=== PATIENT | male | born 1955 | race Caucasian/White ===

== ENCOUNTER 2018-07-03 08:40 | Outpatient (CLI) | payer OTHER ==
[2018-07-03 11:53] VITALS: BP 98/74
--- NOTE | 2018-07-03 16:27 | CARDIAC PROCEDURE NOTE ---
DATE OF SERVICE: 07/03/2018 Physician: ELLEN Peralta PRIMARY CARE PROVIDER: Melany Mike PA-C INSURANCE BILLING SPECIALIST: Griffin Ortega M.D. PROCEDURE: Cardiac treadmill stress test. REASON FOR PROCEDURE: High coronary calcium score and hyperlipidemia. CARDIAC RISK FACTORS: Age, hyperlipidemia. PREVIOUS CARDIAC PROCEDURES: None. CLINICAL HISTORY: A 62-year-old male without known coronary artery disease. INITIAL RESTING VITAL SIGNS: BP 98/74, heart rate 72, height 72 inches, weight 173 pounds, BMI 23.46 . PROCEDURE AND FINDINGS: Patient's identity and date verified. Consent signed. The patient performed treadmill exercise using a [employer] protocol, completing 11 minutes 48 seconds and completing an estimated workload of 13.48 metabolic equivalents. Maximal blood pressure was 156/72 with a heart rate of 140 beats per minute or 89% of maximum predicted heart rate for age. The blood pressure response to exercise was within normal limits. The patient stopped because he was tired. T he resting ECG demonstrated normal sinus rhythm with no abnormality. Maximum ST segment depression w as less than 0.5 mm and upsloping. There was rare ectopy of PAC and PVC. The 1 minute heart rate re covery was within normal limits. FINAL IMPRESSION 1. Good quality test. 2. Negative stress electrocardiogram for ischemia by electrocardiographic criteria. 3. Negative stress test clinically for angina. 4. Rare premature atrial contraction and premature ventricular contraction. 5. Exceeded predicted exercise time of 8 minutes 15 seconds. TD: 07/03/2018 10:42
== END 2018-07-03 08:41 | disposition home or self-care (01) ==
LOC: DI 08:40
PROVIDERS: ATTEND Internal Medicine Cardiovascular Disease
DX: R93.8 Abnormal findings on diagnostic imaging of other specified body structures (principal); E78.5 Hyperlipidemia, unspecified
CPT/HCPCS: 93017

== ENCOUNTER 2018-07-08 07:28 | Emergency (ER) | payer OTHER ==
[2018-07-08] MEDS ORDERED: LIDOCAINE 2% URO-JET 5 ML SYRINGE UR STA (07:44)
--- NOTE | 2018-07-08 07:47 | ED Physician Documentation ---
PD HPI MALE - Stated complaint Stated Complaint: UNABLE TO URINATE/WEAKNESS - History obtained from History obtained from: Patient - History of Present Illness Timing - onset: How many days ago (has had weak urine stream for a month or so. Poor stream and feeling of full bladder the past 5-6 days, and unable to sleep due to pain. Only urinates small dribble at a time.) Associated symptoms: Urinary frequency, Unable to urinate (only small amounts out. Has had discomfort for past 4 days particularly and unable to sleep trying to get some urine out.) PD HPI MALE CONTRIB FACTORS: No: Exposed to STD Similar symptoms before: Has not had sx before Recently seen: Clinic (2 days ago and given Rx for Flomax and Cipro. Having still feeling of dribbling and bladder fullness.) Review of Systems Constitutional: denies: Fever, Chills, Myalgias Nose: denies: Rhinorrhea / runny nose, Congestion GI: reports: Nausea. denies: Abdominal Swelling, Vomiting, Diarrhea : reports: Dysuria, Frequency, Unable to Void Skin: denies: Rash PD PAST MEDICAL HISTORY - Past Medical History Cardiovascular: High cholesterol Respiratory: None Neuro: None - Past Surgical History General: Appendectomy Ortho: Rotator cuff repair, Spine surgery - Present Medications Home Medications: Ambulatory Orders Medication Instructions Recorded Confirmed Ciprofloxacin HCl [Cipro] 500 mg PO DAILY 07/08/18 07/08/18 Tamsulosin [Flomax] 0 mg 07/08/18 - Allergies Allergies/Adverse Reactions: Allergies Allergy/AdvReac Type Severity Reaction Status Date / Time No Known Drug Allergies Allergy Verified 07/08/18 07:57 PD ED PE NORMAL - Vitals Vital signs reviewed: Yes - General General: Alert and oriented X 3, Well developed/nourished, Other (seems uncomfortable due to full bladder. ) - Neck Neck: Supple, no meningeal sign, No adenopathy - Cardiac Cardiac: RRR, No murmur - Respiratory Respiratory: Clear bilaterally - Abdomen Abdomen: Normal bowel sounds, Soft, No organomegaly, Other (fullness suprapubic area c/w full bladder. ) - Back Back: No CVA TTP - Derm Derm: Normal color, Warm and dry - Extremities Extremities: No edema, No calf tenderness / cord Results - Vitals Vitals: Vital Signs - 24 hr 07/08/18 07/08/18 07:32 09:24 Temperature 36.5 C Heart Rate 90 82 Respiratory 16 16 Rate Blood Pressure 140/84 H 122/81 H O2 Saturation 94 Oxygen O2 Source Room air - Labs Labs: Laboratory Tests 07/08/18 07:50 Urine Color YELLOW Urine Clarity HAZY Urine pH 6.[address] [place] 1.025 Urine Protein >=300 Urine Glucose (UA) NEGATIVE Urine Ketones NEGATIVE Urine Occult Blood MODERATE H Urine Nitrite NEGATIVE Urine Bilirubin NEGATIVE Urine Urobilinogen 0.2 (NORMAL) Ur Leukocyte Esterase NEGATIVE Urine RBC 11-25 H Urine WBC >25 H Ur Squamous Epith Cells NONE SEEN Urine Bacteria Many H Ur Microscopic Review INDICATED Urine Culture Comments INDICATED PD MEDICAL DECISION MAKING - ED course Complexity details: considered differential (bladder scanner showing large amount. Maldonado by nursing with feeling much better. His PCP was wanting him to get KUB CT, so got that while here. ), d/w patient - Sepsis Event Vital Signs: Vital Signs - 24 hr 07/08/18 07/08/18 07:32 09:24 Temperature 36.5 C Heart Rate 90 82 Respiratory 16 16 Rate Blood Pressure 140/84 H 122/81 H O2 Saturation 94 Oxygen O2 Source Room air Departure - Departure Disposition: 01 Home, Self Care Clinical Impression: Acute urinary retention, Enlarged prostate UTI (urinary tract infection) Qualifiers: Urinary tract infection type: acute cystitis Hematuria presence: without hematuria Qualified Code(s): N30.00 - Acute cystitis without hematuria Condition: Stable Record reviewed to determine appropriate education?: Yes Instructions: ED Retention Urinary Male, ED UTI Cystitis Male Follow-Up: Melany Mike PA [Primary Care Provider] - Comments: Leave the Maldonado in place until follow-up. Your CT scan did show enlargement of the prostate without any other obvious acute problem. There is an incidental large cyst on the left kidney which is a common finding. Your urine test suggests an infection with some white cells and bacteria. The current prescriptions of the antibiotic and the TMs loosen to reduce the prostate size or seeming appropriate. Typically would have you on those medicines long enough for the infection to clear and the prostate to shrink a little before removing the catheter to give a better chance of good urine outflow upon removal. Follow-up with your primary care and she may refer you to a urologist (often needs to originate through your PCP). Discharge Date/Time: 07/08/18 09:25
[2018-07-08 08:06] LABS: BILIRUBIN,URINE NEGATIVE (NEGATIVE); GLUCOSE, URINE (UA) NEGATIVE (NEGATIVE); KETONES,URINE (UA) NEGATIVE (NEGATIVE); LEUKOCYTE ESTERASE, URINE NEGATIVE (NEGATIVE); NITRITE,URINE NEGATIVE (NEGATIVE); OCCULT BLOOD,URINE MODERATE (NEGATIVE); PROTEIN,URINE >=300 mg/dL (NEGATIVE); UROBILINOGEN,URINE 0.2 (NORMAL) E.U./dL (NORMAL)
[2018-07-08 08:08] LABS: CLARITY,URINE HAZY (CLEAR)
[2018-07-08 08:20] LABS: BACTERIA,URINE Many /HPF (None Seen); SQUAMOUS EPITHELIAL CELL,UR NONE SEEN (<= Few)
--- NOTE | 2018-07-08 08:42 | CT Report ---
Procedure Date: 07/08/2018 Accession Number: [id number] / [id number] Procedure: CT - KUB CPT Code: FULL RESULT: EXAM: CT ABDOMEN AND PELVIS (CT KUB) EXAM DATE: 07/08/2018 08:19 AM. CLINICAL HISTORY: Unable to urinate; poor output. COMPARISONS: None. TECHNIQUE: Routine axial helical CT imaging was performed through the abdomen and pelvis without IV contrast. Reconstructions: Coronal and sagittal. In accordance with CT protocol optimization, one or more of the following dose reduction techniques were utilized for this exam: automated exposure control, adjustment of mA and/or KV based on patient size, or use of iterative reconstructive technique. FINDINGS: Lung Bases: Unremarkable. Right Kidney/Ureter: No stones, hydronephrosis, or hydroureter. Mild perinephric stranding, which may be chronic. Left Kidney/Ureter: No stones, hydronephrosis, or hydroureter. 9 cm diameter exophytic simple cyst off the inferior pole. other Solid Organs: Noncontrast images of the solid organs are grossly unremarkable. Gallbladder/Bile Ducts: Layering density likely represents sludge or small gallstones. Peritoneal Cavity: No ascites or pneumoperitoneum. No bowel obstruction. [id number] stool burden. Colorectal anastomosis without evidence of adjacent inflammatory stranding. Pelvic Organs: The prostate gland is enlarged. The urinary bladder is decompressed by a Maldonado catheter. Vasculature: Mild to moderate atherosclerosis without aneurysm. Other: None. IMPRESSION: The urinary bladder is decompressed by a Maldonado catheter. Prostatomegaly may be the underlying cause of bladder outlet obstruction. No hydronephrosis. RADIA
[2018-07-08 09:25] VITALS: BP 122/81
== END 2018-07-08 09:25 | disposition home or self-care (01) ==
LOC: ED 07:28
DX: N30.00 Acute cystitis without hematuria (principal); N40.1 Benign prostatic hyperplasia with lower urinary tract symptoms
CPT/HCPCS: 51702; 74176; 81001; 81003; 87077; 87086; 87181; 99283

== ENCOUNTER 2021-04-08 09:08 | Outpatient (CLI) | payer MEDICARE ==
[2021-04-08 15:34] LABS: ALBUMIN 2.6 g/dL (3.2-5.5); ALBUMIN/GLOBULIN RATIO 0.9 (1.0-2.2); ALKALINE PHOSPHATASE 49 IU/L (42-121); ALT ALANINE AMINOTRANSFERASE 19 IU/L (10-60); AST ASPARTATE AMINOTRANSFERASE 22 IU/L (10-42); BUN - BLOOD UREA NITROGEN 25 mg/dL (6-20); CALCIUM 8.9 mg/dL (8.5-10.3); CARBON DIOXIDE - CO2 26 mmol/L (21-32); CHLORIDE 105 mmol/L (101-111); CHOL/HDL RATIO 7.3 (<5.0); CHOLESTEROL 411 mg/dL; CK- CREATINE KINASE 97 IU/L (22-269); CREATININE 0.8 mg/dL (0.6-1.2); GFR - MDRD 96 (>89); GLUCOSE 98 mg/dL (70-100); HDL CHOLESTEROL 56 mg/dL; LDL CHOLESTEROL,CALCULATED 313 mg/dL; LDL/HDL RATIO 5.6 (<3.6); POTASSIUM 3.8 mmol/L (3.5-5.0); SODIUM 140 mmol/L (135-145); TOTAL PROTEIN 5.5 g/dL (6.7-8.2); TRIGLYCERIDES 208 mg/dL; VLDL CHOLESTEROL 42 mg/dL
[2021-04-08 16:05] LABS: CREATININE,URINE 99.9 mg/dL; MICROALBUM/CREATININE RATIO,UR 3185.2 ug/mg (<30.0); MICROALBUMIN,URINE 318.2 mg/dL (0-300.0)
[2021-04-08 18:47] LABS: ESTIMATED AVERAGE GLUCOSE 97 mg/dL (70-100)
== END 2021-04-08 09:09 | disposition home or self-care (01) ==
LOC: LAB.S 09:08
PROVIDERS: ATTEND Internal Medicine Endocrinology, Diabetes & Metabolism
DX: E78.5 Hyperlipidemia, unspecified (principal)
CPT/HCPCS: 36415; 80053; 80061; 81599; 82043; 82172; 82550; 82570; 83036; 83695; 83721; 84443

== ENCOUNTER 2021-05-30 12:41 | Outpatient (CLI) | payer MEDICARE ==
--- NOTE | 2021-05-30 17:02 | XRAY Report ---
PROCEDURE: Knee 3 View BILAT INDICATIONS: BILATERAL KNEE PAIN TECHNIQUE: 3 views of each knee are obtained. COMPARISON: None. FINDINGS: Bones: No fractures or dislocations. No suspicious bony lesions. Intramedullary jamaal within the left tibia. Moderate tricomponent mild periarticular osteophyte formation bilaterally. Soft tissues: No joint effusion. Chondrocalcinosis within the medial lateral compartments of the ashley ateral knees IMPRESSION: 1. Bilateral osteoarthritis. 2. Postsurgical sequelae. 3. Chondrocalcinosis. 4. No acute fracture. No osseous lesion. If symptoms and/or clinical suspicion for pathology continue , further assessment with repeat plain films, or advanced imaging (e.g., CT, MRI, or bone scan) is re commended for further assessment. Reviewed by: Coral Jacobson MD on 05/30/2021 5:00 PM PDT Approved by: Coral Jacobson MD on 05/30/2021 5:00 PM PDT Station ID: [id number]
== END 2021-05-30 12:42 | disposition home or self-care (01) ==
LOC: DI.S 12:41
PROVIDERS: ATTEND Nurse Practitioner Family
DX: M25.561 Pain in right knee (principal); M25.562 Pain in left knee; M17.0 Bilateral primary osteoarthritis of knee; M11.262 Other chondrocalcinosis, left knee; M11.261 Other chondrocalcinosis, right knee

== ENCOUNTER 2022-02-27 10:05 | Outpatient (CLI) | payer MEDICARE ==
[2022-02-27 15:08] LABS: ALBUMIN 2.7 g/dL (3.2-5.5); ALKALINE PHOSPHATASE 50 IU/L (42-121); ALT ALANINE AMINOTRANSFERASE 19 IU/L (10-60); AST ASPARTATE AMINOTRANSFERASE 25 IU/L (10-42); BILIRUBIN,TOTAL 0.7 mg/dL (0.2-1.0); BUN - BLOOD UREA NITROGEN 28 mg/dL (6-20); CARBON DIOXIDE - CO2 27 mmol/L (21-32); CHLORIDE 106 mmol/L (101-111); CHOL/HDL RATIO 3.3 (<5.0); CHOLESTEROL 251 mg/dL; CREATININE 0.9 mg/dL (0.6-1.2); GFR - MDRD 84 (>89); GLUCOSE 91 mg/dL (70-100); HDL CHOLESTEROL 76 mg/dL; LDL CHOLESTEROL,CALCULATED 153 mg/dL; POTASSIUM 4.6 mmol/L (3.5-5.0); SODIUM 140 mmol/L (135-145); TOTAL PROTEIN 5.5 g/dL (6.7-8.2); TRIGLYCERIDES 110 mg/dL; VLDL CHOLESTEROL 22 mg/dL
[2022-02-27 20:05] LABS: ESTIMATED AVERAGE GLUCOSE 111 mg/dL (70-100); HEMOGLOBIN A1c% 5.5 % (4.27-6.07)
== END 2022-02-27 10:06 | disposition home or self-care (01) ==
LOC: LAB.S 10:05
PROVIDERS: ATTEND Internal Medicine Endocrinology, Diabetes & Metabolism
DX: E78.01 Familial hypercholesterolemia (principal)
CPT/HCPCS: 36415; 80053; 80061; 83036; 83721

== ENCOUNTER 2022-08-22 07:55 | Outpatient (CLI) | payer MEDICARE ==
[2022-08-22 15:22] LABS: ALBUMIN 2.7 g/dL (3.2-5.5); ALBUMIN/GLOBULIN RATIO 0.9 (1.0-2.2); ALKALINE PHOSPHATASE 45 IU/L (42-121); ALT ALANINE AMINOTRANSFERASE 17 IU/L (10-60); AST ASPARTATE AMINOTRANSFERASE 24 IU/L (10-42); BILIRUBIN,TOTAL 0.7 mg/dL (0.2-1.0); BUN - BLOOD UREA NITROGEN 26 mg/dL (6-20); CALCIUM 8.8 mg/dL (8.5-10.3); CARBON DIOXIDE - CO2 28 mmol/L (21-32); CHLORIDE 104 mmol/L (101-111); CHOL/HDL RATIO 4.7 (<5.0); CHOLESTEROL 326 mg/dL; CREATININE 1.1 mg/dL (0.6-1.2); GFR - MDRD 67 (>89); GLUCOSE 89 mg/dL (70-100); HDL CHOLESTEROL 69 mg/dL; LDL CHOLESTEROL,CALCULATED 221 mg/dL; LDL/HDL RATIO 3.2 (<3.6); POTASSIUM 4.3 mmol/L (3.5-5.0); SODIUM 136 mmol/L (135-145); TOTAL PROTEIN 5.6 g/dL (6.7-8.2); TRIGLYCERIDES 179 mg/dL; VLDL CHOLESTEROL 36 mg/dL
[2022-08-22 20:13] LABS: ESTIMATED AVERAGE GLUCOSE 105 mg/dL (70-100); HEMOGLOBIN A1c% 5.3 % (4.27-6.07)
== END 2022-08-22 07:56 | disposition home or self-care (01) ==
LOC: LAB.S 07:55
PROVIDERS: ATTEND Internal Medicine Endocrinology, Diabetes & Metabolism
DX: E78.01 Familial hypercholesterolemia (principal)
CPT/HCPCS: 36415; 80053; 80061; 83036; 83721

== ENCOUNTER 2023-01-01 16:03 | Outpatient (CLI) | payer MEDICARE ==
--- NOTE | 2023-01-02 09:31 | XRAY Report ---
PROCEDURE: Chest 2 View X-Ray INDICATIONS: UNINTETIONAL WEIGHT LOSS TECHNIQUE: 2 views of the chest were acquired. COMPARISON: None. FINDINGS: Surgical changes and devices: None. Lungs and pleura: No pleural effusions or pneumothorax. Lungs are clear. Mediastinum: Mediastinal contours are normal. Heart size is normal. Bones and chest wall: No suspicious bony abnormalities. Soft tissues appear unremarkable. IMPRESSION: No acute cardiopulmonary disease. Reviewed by: Trey Lawson MD on 01/02/2023 9:30 AM [facility] Approved by: Trey Lawson MD on 01/02/2023 9:30 AM [facility] Station ID: [id number]
== END 2023-01-01 16:04 | disposition home or self-care (01) ==
LOC: DI.S 16:03
PROVIDERS: ATTEND Nurse Practitioner Family
DX: R63.4 Abnormal weight loss (principal)

== ENCOUNTER 2023-02-04 14:18 | Outpatient (CLI) | payer MEDICARE ==
[2023-02-04 20:00] LABS: CREATININE 1.3 mg/dL (0.6-1.2)
[2023-02-04 20:15] LABS: PSA FREE 2.895 ng/mL (0.16-2.81)
[2023-02-04 20:16] LABS: PSA TOTAL 8.092 ng/mL (0.000-2.000)
== END 2023-02-04 14:19 | disposition home or self-care (01) ==
LOC: LAB.S 14:18
PROVIDERS: ATTEND Physician Assistant
DX: R31.0 Gross hematuria (principal); R97.20 Elevated prostate specific antigen [PSA]
CPT/HCPCS: 36415; 82565; 84153; 84154; 84520

== ENCOUNTER 2023-02-14 12:25 | Outpatient (CLI) | payer MEDICARE ==
[2023-02-14] MEDS ORDERED: iohexoL-300 100 ML VIAL ONE ×2 (12:31)
[2023-02-14] MEDS ORDERED: iohexoL-300 100 ML VIAL IVP ONE (12:48)
--- NOTE | 2023-02-14 22:07 | CT Report ---
PROCEDURE: CT IVP INDICATIONS: GROSS HEMATURIA CONTRAST: 140ml Omnipaque 300 TECHNIQUE: Noncontrast images of the abdomen and pelvis obtained. After the administration of intravenous contra st, 5 mm thick sections acquired from the diaphragms to the symphysis using a split bolus technique. 5 mm thick coronal and sagittal reformats were acquired. For radiation dose reduction, the followin g was used: automated exposure control, adjustment of mA and/or kV according to patient size. COMPARISON: CT KUB 07/08/2018 FINDINGS: Visualized lung bases: No pleural effusion. Liver and biliary tree: A few scattered subcentimeter hypodensities are present, too small to charact erize. No biliary ductal dilation demonstrated. Gallbladder: No radiopaque cholelithiasis. Spleen: Unremarkable. Pancreas: Unremarkable. Adrenal glands: Unremarkable. Kidneys and ureters: No urinary stone or hydroureteronephrosis. Redemonstrated simple appearing corti marixa cyst left inferior kidney, 10.8 cm. No definite evidence of a solid renal mass identified. The op acified portions of the renal collecting systems and ureters are unremarkable without a definite fill ing defect demonstrated. Gastrointestinal tract: No bowel obstruction. Prior low anterior resection. Peritoneal cavity: No free air or free fluid. Bladder: No stones visualized. Possible diffuse wall thickening. Pelvic organs: Prostatomegaly. Vasculature: No abdominal aortic aneurysm. Musculoskeletal: Degenerative change of the spine. Bilateral L5-S1 pars defects. IMPRESSION: 1. No urinary stone visualized. No definite evidence of a solid renal mass or upper tract urothelial neoplasm identified. 2. Prostatomegaly. 3. Possible wall thickening of the urinary bladder versus artifact from underdistention. Correlation for a cystitis may be helpful. Reviewed by: Ovidio Mathews MD on 02/14/2023 10:05 PM PDT Approved by: Ovidio Mathews MD on 02/14/2023 10:05 PM PDT Station ID: [id number]
== END 2023-02-14 12:26 | disposition home or self-care (01) ==
LOC: DI 12:25
PROVIDERS: ATTEND Physician Assistant
DX: R31.0 Gross hematuria (principal); N39.0 Urinary tract infection, site not specified; N40.1 Benign prostatic hyperplasia with lower urinary tract symptoms
CPT/HCPCS: 74178; Q9967

== ENCOUNTER 2023-02-16 12:45 | Outpatient (CLI) | payer MEDICARE ==
[~2023-02-16 12:45] MED LIST: GADOBUTROL 7.5 MMOL/7.5 ML VIAL ONE
[2023-02-16] MEDS ORDERED: GADOBUTROL 7.5 MMOL/7.5 ML VIAL IVP ONE (13:40)
--- NOTE | 2023-02-18 08:09 | MRI Report ---
PROCEDURE: PELVIS W/WO INDICATIONS: ELEVATED PSA CONTRAST: GADAVIST 6.8ML TECHNIQUE: Coronal ultra fast SE, axial T1 FSE with fat saturation, 3-plane nonbreath-hold T2 FSE. After the ad ministration of contrast, dynamic axial, delayed axial and coronal ultra fast GE or 2-D spoiled GE wi th fat saturation through the pelvis. Optional diffusion weighted imaging and ADC may be performed. COMPARISON: None. FINDINGS: Image quality: Diffusion weighted and dynamic contrast enhanced images are diagnostic. Prostate: Gland size is 6.1 x 7.6 x 5.1 cm cm; ellipsoid gland volume is 122 mL. No PI-RAD 3-5 lesions. A few foci of hemorrhage. Genitourinary system: Mildly spiculated bladder wall, suggestive of chronic outlet obstruction. Bowel and peritoneum: 1.7 cm segment of semiannular wall thickening of the high rectum (series 7/ image). Restricted diffusion is present. No mesorectal adenopathy. Nodes and vessels: No pelvic or inguinal adenopathy by size criteria. Iliac vessels are normal in c aliber. Soft tissues: Small right inguinal hernia containing fat. Bones: Bone marrow demonstrates normal overall signal. No suspicious bony lesions. IMPRESSION: Prostatomegaly. No PI-RAD 3-5 lesions. Short segment of semiannular wall thickening of the high rectum, which could indicate malignancy vers us artifact from fecal debris. Recommend direct visualization with colonoscopy, if not performed rece ntly. Reviewed by: Adelso Anderson on 02/18/2023 8:08 AM PDT Approved by: Adelso Anderson on 02/18/2023 8:08 AM PDT Station ID: [id number]
== END 2023-02-16 12:46 | disposition home or self-care (01) ==
LOC: DI 12:45
PROVIDERS: ATTEND Physician Assistant
DX: R97.20 Elevated prostate specific antigen [PSA] (principal); N40.0 Benign prostatic hyperplasia without lower urinary tract symptoms
CPT/HCPCS: 72197; A9585

== ENCOUNTER 2023-02-28 12:39 | Outpatient (CLI) | payer MEDICARE | END 2023-02-28 12:40 | disposition home or self-care (01) | LOC: NS 12:39 | PROVIDERS: ATTEND Internal Medicine | DX: Z71.3 Dietary counseling and surveillance (principal); R63.4 Abnormal weight loss; Z68.20 Body mass index [BMI] 20.0-20.9, adult | CPT/HCPCS: 97802 ==

== ENCOUNTER 2023-09-11 07:22 | Day surgery (SDC) | payer MEDICARE ==
[2023-09-11] MEDS ORDERED: PROPOFOL 500 MG/50 ML 500 MG/50 ML VIAL ONE (07:23)
[2023-09-11] MEDS ORDERED: LACTATED RINGERS 1,000 ML IV ONE ×2 (07:45→09:23)
--- NOTE | 2023-09-11 08:23 | ANESTHESIA ---
Pre-Anesthesia VS, & Labs - Diagnosis screening - Procedure colonoscopy Vital Signs: Temp Pulse Resp BP Pulse Ox O2 Flow Rate 36.8 C 79 20 135/86 H 96 09/11/23 07:40 09/11/23 07:40 09/11/23 07:40 09/11/23 07:40 09/11/23 07:40 Height: 6 ft 1 in Weight (kg): 64.5 kg Body Mass Index: 18.7 BMI Classification: Normal - NPO Other (prep as directed) Home Medications and Allergies Home Medications: Ambulatory Orders Escitalopram [Lexapro] 20 mg PO DAILY 09/10/23 Ezetimibe [Zetia] 10 mg PO QD 09/10/23 Finasteride [Proscar] 5 mg PO DAILY 09/10/23 Tamsulosin [Flomax] 2 tab PO DAILY 07/08/18 Escitalopram [Lexapro] 20 mg PO DAILY 09/10/23 Ezetimibe [Zetia] 10 mg PO QD 09/10/23 Finasteride [Proscar] 5 mg PO DAILY 09/10/23 Allergies/Adverse Reactions: Allergies Allergy/AdvReac Type Severity Reaction Status Date / Time No Known Drug Allergies Allergy Verified 07/08/18 07:57 Anes History & Medical History - Anesthetic History Anesthesia Complications: reports: Other-see comment (some arrythmia per patient, states had negative stress test, cardiac workup afterwards. not other cardiac history.) - Medical History Cardiovascular: reports: High cholesterol Pulmonary: reports: None Gastrointestinal: reports: None, Diverticulitis Urinary: reports: Benign prostate hypertrophy, Other Neuro: reports: None Musculoskeletal: reports: Rheumatoid arthritis Endocrine/Autoimmune: reports: None Skin: reports: Other Smoking Status: Never smoker History of Cancer?: Yes - Surgical History General: reports: Appendectomy, Other Eyes Ears Nose Throat (EENT): reports: Cataracts Urologic: reports: Bladder surgery Orthopedic: reports: Rotator cuff repair, Spine surgery Dermatologic: reports: Skin cancer surgery Exam General: Alert, Oriented x3 Dental: WNL Mouth Opening: Greater than 4 Fingerbreadths Neck Mobility: Normal Mallampati classification: II Thyromental Distance: greater than 6 cm Respiratory: Lungs clear Cardiovascular: Regular rate, Normal S1, Normal S2 Plan Anesthesia Type: Total IV Consent for Procedure(s) Verified and Reviewed: Yes Code Status: Attempt Resuscitation ASA classification: 2-Mild systemic disease Is this case an emergency?: No
[2023-09-11] MEDS ORDERED: MIDAZOLAM 2 MG/2 ML VIAL ONE (08:38)
[2023-09-11] MEDS ORDERED: DEXTROSE 5% 1,000 ML IV ONE (09:23)
[2023-09-11 09:57] VITALS: BP 131/85; O2SAT 98
--- NOTE | 2023-09-11 10:57 | ANESTHESIA POST OP EVALUATION ---
Anesthesia Post Eval - Post Anesthesia Eval Vitals: Last Vital Signs Temp 37.2 C 09/11/23 09:46 Pulse 78 09/11/23 09:46 Resp 18 09/11/23 09:46 BP 131/85 H 09/11/23 09:46 Pulse Ox 98 09/11/23 09:46 O2 Flow Rate CV Function Including HR & BP: Stable Pain Control: Satisfactory Nausea & Vomiting: Negative Mental Status: Baseline Respiratory Status: Airway Patent Hydration Status: Satisfactory Anesthesia Complications: None
== END 2023-09-11 07:23 | disposition home or self-care (01) ==
LOC: SDS 07:22
PROVIDERS: ATTEND Surgery
PROC: 0DBN8ZZ Excision of Sigmoid Colon, Via Natural or Artificial Opening Endoscopic (ICD-10-PCS; principal; 2023-09-11 08:30)
DX: Z12.11 Encounter for screening for malignant neoplasm of colon (principal); D12.5 Benign neoplasm of sigmoid colon; K57.30 Diverticulosis of large intestine without perforation or abscess without bleeding; Z90.49 Acquired absence of other specified parts of digestive tract; Z87.19 Personal history of other diseases of the digestive system
CPT/HCPCS: 45380; J7120

== ENCOUNTER 2023-09-13 15:16 | Outpatient (CLI) | payer MEDICARE ==
--- NOTE | 2023-09-13 15:49 | Sleep Patient Instructions ---
Sleep Center Visit Summary - Patient Visit Information Reason for Visit: Initial consult for evaluation of sleep disordered breathing and other sleep issues. - Patient Instructions Instructions Attached: Sleep Study, Sleep Clinic Visit Additional Instructions: You will be completing a sleep study, either an in-lab polysomnography (PSG) or home sleep study (HST). You will follow-up in the sleep care office after the sleep study is completed to hear the results and talk about therapy, if needed. You will be called by our office staff to schedule this appointment, but you may contact us with any questions. - Clinic Information Contact: [facility] [address] [place] [address] [email or web address] T: [phone]
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
[2023-09-13 16:05] VITALS: BP 134/84; O2SAT 95
== END 2023-09-13 15:17 | disposition home or self-care (01) ==
LOC: SC 15:16
PROVIDERS: ATTEND Nurse Practitioner Family
DX: G47.10 Hypersomnia, unspecified (principal); R53.83 Other fatigue; G47.8 Other sleep disorders; R06.81 Apnea, not elsewhere classified; R06.83 Snoring; R41.89 Other symptoms and signs involving cognitive functions and awareness; Z86.16 Personal history of COVID-19
CPT/HCPCS: 99203; G0463; 99212

== ENCOUNTER 2023-09-24 13:09 | Outpatient (CLI) | payer MEDICARE | END 2023-09-24 13:10 | disposition home or self-care (01) | LOC: LAB.S 13:09 | PROVIDERS: ATTEND Physician Assistant | DX: R97.20 Elevated prostate specific antigen [PSA] (principal) | CPT/HCPCS: 36415; 84153; 84154 ==

== ENCOUNTER 2023-10-11 19:23 | Outpatient (CLI) | payer MEDICARE | END 2023-10-11 19:24 | disposition home or self-care (01) | LOC: SC 19:23 | PROVIDERS: ATTEND Nurse Practitioner Family | DX: G47.33 Obstructive sleep apnea (adult) (pediatric) (principal); G47.61 Periodic limb movement disorder | CPT/HCPCS: 95810 ==

== ENCOUNTER 2023-10-23 09:02 | Outpatient (CLI) | payer MEDICARE ==
--- NOTE | 2023-10-23 09:40 | Sleep Patient Instructions ---
Sleep Center Visit Summary - Patient Visit Information Reason for Visit: Sleep study follow-up - Patient Instructions Additional Instructions: You are to start Positional therapy to control your sleep apnea. You may obtain positional belts or other commercial devices online. You may also use pillows to position yourself on your side or a T shirt with balls sewn into the back to help keep you on your side to sleep. We would like to follow up with you in a month to check effectiveness of therapy. Please call office to schedule a follow up appointment in the sleep care office in 1-2 months. - Clinic Information Contact: [facility] [address] [place] [address] [email or web address] T: [phone]
--- NOTE | 2023-10-23 09:42 | SLEEP CARE CONSULTATION ---
Information from patient questionnaire entered by Saira Roca. I have reviewed and concur with the information entered by Saira Roca. This document represents the service I personally performed and the decisions made by , Mihaela Hopkins ARNP. History of Present Illness Service Date and Time: 10/23/2023 09 Initial [place] Sleepiness Scale score: 10 (09/05/23) Current [place] Sleepiness Scale score: 9 (10/23/23) Additional HPI information: FRANCESCA LAY returns for follow up and results of the recently performed polysomnography. The sleep study showed mild obstructive sleep apnea with an average AHI of 13.3 (but severe supine) and aleah oxygen saturation of 77%. I explained the pathophysiology behind obstructive sleep apnea. We then spent quite a bit of time discussing different treatment options. For mild obstructi ve sleep apnea, surgery and oral appliance are alternatives to nasal CPAP therapy but in moderate or severe cases, nasal CPAP is the most effective and reliable treatment. Because apnea is primarily in supine position, then positional management therapy could be effective. Methods discussed such as positioning with pillows, using a T-shirt with tennis balls in the back or commercial products that have a pillow format on back to prevent supine sleep. I reviewed the impact of weight changes on sleep apnea and strongly recommended losing weight. After some discussion, the patient opted for positional therapy. Patient counseled not drink alcohol less than 4 hours before bedtime as it can increase snoring and apnea. Patient was cautioned about risks of drowsy driving until sleepiness sym ptoms resolve. Sleep Study - Results Type of Sleep Study: Polysomnography (COMPLETED 12/11/22) Prior sleep studies: No Polysomnography/Home Sleep Study results: IMPRESSION: The quality of the study is good. The patient had slightly reduced sleep efficiency due to two prolonged awakenings during the night. The sleep architecture was normal. Respiratory monitoring showed mild obstructive sleep apnea-hypopnea (AHI = 13.3) associated with frequent, oxyhemoglobin desaturation and moderate hypoxia (aleah oxygen saturation of 77%) but not sleep fragmentation. The respiratory events occurred almost exclusively during supine sleep (supine AHI = 65.5; non-supine = 0.42). Snore was light to loud in intensity. There was severe periodic leg movement of sleep not associated with sleep fragmentation. Cardiac rhythm was normal sinus rhythm without significant arrhythmia. No abnormal behavior (parasomnia) observed during the night. Allergies and Home Medications Known drug allergies: No Drug allergies reviewed: Yes Home medication list reviewed: Yes (no changes) Allergy and home medication list: Allergies No Known Drug Allergies Allergy (Verified 09/13/23 15:21) Review of Systems Review of systems same as previous: Yes (NO CHANGE) Physical Exam Vital signs obtained and entered by: SAIRA Forrest MA Blood Pressure: 120/70 (LEFT ARM) Cuff size: regular Heart Rate: 76 O2 Saturation: 96 Height: 6 ft 1 in Weight: 151 lb 4.8 oz Body Mass Index: 19.9 BMI Classification: Normal Impression and Plan 1. Obstructive Sleep Apnea-Hypopnea Syndrome, mild, with lowest oxygen saturation of 77%. Obviously this is the cause of the patients symptoms of unrefreshed sleep, and excessive daytime sleepiness. Positive pressure therapy could benefit anxiety, depression and attention deficit. Since patients apnea is primarily in supine position, patient advised to try positional therapy and agreed with plan. An oral appliance can also be used for snoring but often is not covered by insurance. Follow up is scheduled for one month to check effectiveness and if further evaluation indicated to see if additional treatment indicated. 2. Hypoxemia, moderate, with a aleah oxygen saturation of 77% and 18.4 minutes spent under 90%. The baseline oxygen saturation was normal with an average oxygen saturation of 92%. 3. Periodic limb movement, severe, that did not fragment patients sleep. Periodic limb movement of sleep (PLMS) is characterized by episodes of repet itive limb movements that occur during sleep and usually involve the lower limbs. The etiology is unknown but can be associated with restless leg syndrome (RLS), neuropathy, spinal cord diseases, kidney disease, rheumatological disorders, narcolepsy, obstructive sleep apnea, and REM sleep behavior disorder. Caffeine can also aggravate PLMS and should be avoided. Sleep hygiene methods can also improve sleep as well as lifestyle changes such as regular exercise. Patient was advised that no treatment is needed at this time. If symptoms increase, then further evaluation is indicated. * Positional therapy. * Avoid alcohol consumption near bedtime. * Avoid supine sleep. * The patient is again cautioned about driving until sleepiness completely resolves. * Return in one to two months. I will assess response to therapy at that time. Counseling Topics: Sleeping position Follow up with Sleep Care in: 1-2 months Visit Type: In Office Time Spent with Patient (minutes): 28 Provider Statement: I spent 100% of the Face to Face Visit with the patient with greater than 50% spent counseling the patient and coordination of care.
[2023-10-23 09:43] VITALS: BP 120/70; O2SAT 96
== END 2023-10-23 09:03 | disposition home or self-care (01) ==
LOC: SC 09:02
PROVIDERS: ATTEND Nurse Practitioner Family
DX: G47.33 Obstructive sleep apnea (adult) (pediatric) (principal); R09.02 Hypoxemia; G47.61 Periodic limb movement disorder
CPT/HCPCS: 99213; G0463; 99212

== ENCOUNTER 2023-12-30 14:47 | Outpatient (CLI) | payer MEDICARE ==
--- NOTE | 2023-12-30 16:35 | Ultrasound Report ---
PROCEDURE: Renal (Retroperitoneal) INDICATIONS: ACUTE KIDNEY INJURY TECHNIQUE: Real-time scanning was performed of the retroperitoneal organs, with image documentation. COMPARISON: None. FINDINGS: Kidneys: Kidneys are normal in size. Right kidney measures 13.3 cm long; left kidney measures 12.8 cm long. Right renal cortical thickness is 1.1 cm; left renal cortical thickness is 1.0 cm. No odalys d masses, hydronephrosis, or nephrolithiasis. Exophytic left renal cyst measuring 10 cm. Bladder: Pre-void bladder volume is 118 mL. Post-void residual is 12 mL. Pre-void images demonstra te no intraluminal masses or stones. On pre-void images, bilateral ureteral jets are noted with colo r Doppler interrogation. (Of note, ureteral jets may not be detectable in up to 25% of cases due to insufficient differences in specific gravity between ureteral and bladder urine). Prostate is enlarg ed. Miscellaneous: No free abdominal fluid. IMPRESSION: 1. No acute process. 2. Prostatic enlargement. Recommend correlation with PSA values. Reviewed by: Coral Galvez MD on 12/30/2023 4:33 PM PST Approved by: Coral Galvez MD on 12/30/2023 4:33 PM PST Station ID: [id number]
== END 2023-12-30 14:48 | disposition home or self-care (01) ==
LOC: DI 14:47
PROVIDERS: ATTEND Registered Nurse
DX: N17.9 Acute kidney failure, unspecified (principal); N40.0 Benign prostatic hyperplasia without lower urinary tract symptoms

== ENCOUNTER 2024-02-21 08:00 | Outpatient (CLI) | payer MEDICARE | END 2024-02-21 23:59 | disposition home or self-care (01) | LOC: LAB.N 08:00 | PROVIDERS: ATTEND Registered Nurse | DX: R39.89 Other symptoms and signs involving the genitourinary system (principal); R30.0 Dysuria | CPT/HCPCS: 87077; 87086; 87181 ==

== ENCOUNTER 2024-05-13 08:03 | Outpatient (CLI) | payer MEDICARE | END 2024-05-13 08:04 | disposition home or self-care (01) | LOC: LAB.S 08:03 | PROVIDERS: ATTEND Internal Medicine Nephrology | DX: N17.9 Acute kidney failure, unspecified (principal) | CPT/HCPCS: 36415; 86704; 86706; 87340 ==